=== PATIENT | female | born 1990 | race Caucasian/White ===

== ENCOUNTER 2017-07-01 07:58 | Emergency (ER) | payer MEDICAID ==
[~2017-07-01] VITALS: Ht 172.7 cm; Wt 54.2 kg
[~2017-07-01 07:58] MED LIST: DOXY100T PO; NORG1TAB7 PO; OXYC-307 PO
[2017-07-01] MEDS ORDERED: ALPR0.5T PO (08:42)
[2017-07-01 08:52] LABS: HEMATOCRIT 45.1 % (34.6-47.8); HEMOGLOBIN 15.4 g/dL (11.7-16.4); WHITE BLOOD COUNT 11.9 x10^3/uL (3.4-10)
[2017-07-01 08:58] LABS: PATH.CAST-FLAG NOT PRESENT; SPERM-FLAG NOT PRESENT; SRC-FLAG NOT PRESENT; XTAL-FLAG NOT PRESENT; YLC-FLAG NOT PRESENT
[2017-07-01] MEDS ORDERED: ONDANSETRON 2MG/ML, 2ML IVPush ONE (09:00)
[2017-07-01] MEDS ORDERED: SODIUM CHLORIDE 0.9% 1,000ML IVBOLUS ONE (09:00)
[2017-07-01 09:04] LABS: ASPARTATE AMINO TRANSFERASE 42 U/L (15-37); BLOOD UREA NITROGEN 8 mg/dL (7-18)
[2017-07-01] MEDS ORDERED: ONDANSETRON 2MG/ML, 2ML ONE (09:20)
[2017-07-01] MEDS ORDERED: SODIUM CHLORIDE 0.9% 1,000 ML IV ONE (10:00)
[2017-07-01] MEDS ORDERED: SODIUM CHLORIDE FLUSH 10ML SYR IVF ONE (10:00)
[2017-07-01] MEDS ORDERED: KETOROLAC 30 MG/1 ML IVPush ONE (10:00)
[2017-07-01] MEDS ORDERED: KETOROLAC 30 MG/1 ML ONE (10:11)
[2017-07-01 10:17] VITALS: BP 123/67
[2017-07-01] MEDS ORDERED: MAALOX/HYOSCYAMINE/LIDOCAINE 45 ML BTL PO ONE (10:30)
[2017-07-01] MEDS ORDERED: MAALOX/HYOSCYAMINE/LIDOCAINE 45 ML BTL ONE (10:47)
== END 2017-07-01 11:01 | disposition home or self-care (01) ==
LOC: ED 09:11
DX: K29.00 Acute gastritis without bleeding (principal)
CPT/HCPCS: 36415; 74176; 80053; 81001; 83690; 84703; 85025; 96361; 96374; 96375; 99285; J1885; J2405; J7030

== ENCOUNTER 2017-09-06 09:06 | Emergency (ER) | payer MEDICAID ==
[~2017-09-06] VITALS: Ht 172.7 cm; Wt 58.0 kg
[~2017-09-06 09:06] MED LIST changes: +ALPR0.5T PO
[2017-09-06] MEDS ORDERED: MORPHINE SULFATE 4 MG/ML, 1ML ONE ×2 (10:14→11:12)
[2017-09-06] MEDS ORDERED: ONDANSETRON 2MG/ML, 2ML ONE (10:14)
[2017-09-06] MEDS: MORPHINE SULFATE 4 MG/ML, 1ML IVPush PRN ×2 (10:28→11:16)
[2017-09-06] MEDS ORDERED: SODIUM CHLORIDE 0.9% 1,000ML IVBOLUS ONE (10:30)
[2017-09-06] MEDS ORDERED: SODIUM CHLORIDE FLUSH 10ML SYR IVF ONE (10:30)
[2017-09-06] MEDS ORDERED: ONDANSETRON 2MG/ML, 2ML IVPush ONE (10:30)
[2017-09-06 10:43] LABS: HEMATOCRIT 44.7 % (34.6-47.8); HEMOGLOBIN 15.2 g/dL (11.7-16.4); WHITE BLOOD COUNT 7.3 x10^3/uL (3.4-10)
[2017-09-06 10:55] LABS: BLOOD UREA NITROGEN 11 mg/dL (7-18)
[2017-09-06] MEDS ORDERED: OXYcodone/APAP 5/325MG TABLET PO ONE (12:00)
[2017-09-06 12:13] VITALS: BP 104/66
[2017-09-06] MEDS ORDERED: OXYcodone/APAP 5/325MG TABLET ONE (12:19)
== END 2017-09-06 12:19 | disposition home or self-care (01) ==
LOC: ED 12:13
DX: S39.012A Strain of muscle, fascia and tendon of lower back, initial encounter (principal); R10.2 Pelvic and perineal pain; G89.29 Other chronic pain; M54.42 Lumbago with sciatica, left side; N83.209 Unspecified ovarian cyst, unspecified side; X58.XXXA Exposure to other specified factors, initial encounter; Y93.89 Activity, other specified; Y99.8 Other external cause status; Y92.89 Other specified places as the place of occurrence of the external cause
CPT/HCPCS: 36415; 76830; 80048; 81003; 82040; 84703; 85025; 93971; 96361; 96374; 96375; 96376; 99285; J2405; J7030

== ENCOUNTER 2017-11-14 10:59 | Emergency (ER) | payer MEDICAID ==
[~2017-11-14] VITALS: Ht 172.7 cm; Wt 59.6 kg
[2017-11-14 11:16] VITALS: BP 121/90
[2017-11-14] MEDS ORDERED: IBUPROFEN 200 MG TABLET PO ONE (12:00)
[2017-11-14] MEDS ORDERED: OXYcodone/APAP 5/325MG TABLET PO ONE (12:00)
[2017-11-14] MEDS ORDERED: OXYcodone/APAP 5/325MG TABLET ONE (12:31)
[2017-11-14] MEDS ORDERED: IBUPROFEN 200 MG TABLET ONE (12:31)
== END 2017-11-14 13:01 | disposition home or self-care (01) ==
LOC: ED 12:50
DX: R07.89 Other chest pain (principal); G89.29 Other chronic pain; R10.9 Unspecified abdominal pain; S46.911A Strain of unspecified muscle, fascia and tendon at shoulder and upper arm level, right arm, initial encounter; X58.XXXA Exposure to other specified factors, initial encounter; Y93.89 Activity, other specified; Y99.8 Other external cause status; Y92.89 Other specified places as the place of occurrence of the external cause
CPT/HCPCS: 99284

== ENCOUNTER 2018-02-27 19:56 | Emergency (ER) | payer MEDICAID ==
[~2018-02-27] VITALS: Ht 172.7 cm; Wt 61.3 kg
[2018-02-27] MEDS ORDERED: LORazepam 1MG TABLET PO ONE (20:30)
[2018-02-27] MEDS ORDERED: LORazepam 1MG TABLET ONE (20:30)
[2018-02-27 20:38] VITALS: BP 117/84
== END 2018-02-27 20:57 | disposition home or self-care (01) ==
LOC: ED 20:50
DX: J98.01 Acute bronchospasm (principal); J00 Acute nasopharyngitis [common cold]
CPT/HCPCS: 71046; 93005; 99284; J7512

== ENCOUNTER 2018-07-09 09:13 | Emergency (ER) | payer MEDICAID ==
[~2018-07-09] VITALS: Ht 172.7 cm; Wt 62.0 kg
[2018-07-09] MEDS ORDERED: KETOROLAC 30 MG/1 ML ONE (09:59)
[2018-07-09] MEDS ORDERED: KETOROLAC 30 MG/1 ML IM ONE (10:00)
[2018-07-09 10:02] LABS: BASOPHILS # (AUTO) 0.14 x10^3/uL (0-0.1); BASOPHILS % (AUTO) 2 % (0-1); EOSINOPHILS # (AUTO) 0.13 x10^3/uL (0-0.4); EOSINOPHILS % (AUTO) 2 % (1-7); LYMPHOCYTES # (AUTO) 3.32 x10^3/uL (1-3.4); LYMPHOCYTES % (AUTO) 40 % (22-44); MD NO; MEAN CORPUSCULAR HEMOGLOBIN 33.7 pg (27.0-34.8); MEAN CORPUSCULAR HGB CONC 34.1 g/dL (32.4-35.8); MEAN CORPUSCULAR VOLUME 98.9 fL (80-100); MONOCYTES % (AUTO) 6 % (2-9); NEUTROPHILS # (AUTO) 4.19 x10^3/uL (1.8-6.8); NEUTROPHILS % (AUTO) 51 % (42-75); PLATELET COUNT 225 x10^3/uL (130-400); RED CELL DISTRIBUTION WIDTH 12.3 % (9.6-15.2)
[2018-07-09 10:11] LABS: HCG UR SG 1.023 (1.003-1.030); MICROSCOPIC AUTO
[2018-07-09 10:12] LABS: ALANINE AMINOTRANSFERASE 27 U/L (12-78); ALBUMIN 3.5 g/dL (3.4-5.0); ANION GAP 7 mmol/L (5-15); CHLORIDE 112 mmol/L (98-107)
[2018-07-09 10:12] LABS: CULTURE INDICATED? YES
[2018-07-09 10:13] LABS: ALKALINE PHOSPHATASE 127 U/L (45-117); BILIRUBIN,TOTAL 0.5 mg/dL (0.2-1.0); TOTAL PROTEIN 7.1 g/dL (6.4-8.2)
[2018-07-09] MEDS ORDERED: MORPHINE SULFATE 4 MG/ML, 1ML IVPush PRN (13:00)
[2018-07-09] MEDS ORDERED: OMNIPAQUE 350 MG/ML, 100ML BOTTLE ONE (13:28)
[2018-07-09 14:23] VITALS: BP 104/67
== END 2018-07-09 14:25 | disposition home or self-care (01) ==
LOC: ED 10:37
DX: R10.31 Right lower quadrant pain (principal); M54.9 Dorsalgia, unspecified; M25.562 Pain in left knee
CPT/HCPCS: 36415; 74177; 76856; 80053; 81001; 81025; 83690; 85025; 87086; 96372; 99285; J1885; Q9967

== ENCOUNTER 2018-07-23 21:27 | Emergency (ER) | payer MEDICAID ==
[~2018-07-23] VITALS: Ht 172.7 cm; Wt 64.0 kg
[2018-07-23 21:29] VITALS: BP 142/108
[2018-07-23] MEDS ORDERED: IBUPROFEN 200 MG TABLET ONE (21:54)
[2018-07-23] MEDS ORDERED: ACETAMINOPHEN 500 MG TABLET ONE (21:54)
[2018-07-23] MEDS ORDERED: ACETAMINOPHEN 500 MG TABLET PO ONE (22:00)
[2018-07-23] MEDS ORDERED: IBUPROFEN 200 MG TABLET PO ONE (22:00)
== END 2018-07-23 23:05 | disposition home or self-care (01) ==
LOC: ED 21:51
DX: M79.605 Pain in left leg (principal); M79.604 Pain in right leg; F41.1 Generalized anxiety disorder; F17.200 Nicotine dependence, unspecified, uncomplicated
CPT/HCPCS: 93970; 99284

== ENCOUNTER 2018-11-21 10:17 | Outpatient (CLI) | payer MEDICAID ==
[2018-11-21] MEDS ORDERED: IBUP-1223 PO (11:10)
[2018-11-21] MEDS ORDERED: ALPR1TAB2 PO (11:10)
[2018-11-21] MEDS ORDERED: NORG1TAB7 PO (11:10)
[2018-11-21] MEDS ORDERED: ACET-1600 PO (11:10)
== END 2018-11-21 23:59 | disposition home or self-care (01) ==
LOC: STAR 10:17
PROVIDERS: ATTEND Obstetrics & Gynecology
DX: Z02.9 Encounter for administrative examinations, unspecified (principal)

== ENCOUNTER 2018-11-30 10:05 | Observation (INO) | payer MEDICAID ==
[~2018-11-30] VITALS: Ht 172.7 cm; Wt 81.0 kg
[~2018-11-30 10:05] MED LIST changes: +ACET-1600 PO; +ALPR1TAB2 PO; +IBUP-1223 PO
[2018-11-30] MEDS ORDERED: INDIGO CARMINE 0.8%, 5ML ONE (11:03)
[2018-11-30 11:26] LABS: HCG UR SG 1.024 (1.003-1.030)
[2018-11-30] MEDS ORDERED: LACTATED RINGERS 1,000 ML IV SCH (11:33)
[2018-11-30] MEDS ORDERED: BUPIVACAINE/PF 0.25% ONE (11:39)
[2018-11-30] MEDS ORDERED: EPINEPHRINE 1 MG/ML, 1ML ONE (11:39)
[2018-11-30] MEDS ORDERED: FENTANYL PF 100 MCG/2ML ONE ×2 (11:40→15:27)
[2018-11-30] MEDS ORDERED: MIDAZOLAM 1 MG/ML, 2ML ONE (11:40)
[2018-11-30] MEDS ORDERED: MEPERIDINE/PF 25MG/0.5ML IVPush PRN (12:00)
[2018-11-30] MEDS ORDERED: METOCLOPRAMIDE 5 MG/ML, 2ML IV PRN (12:00)
[2018-11-30] MEDS ORDERED: HYDROmorphone 2 MG/ML, 1ML IVPush PRN (12:00)
[2018-11-30] MEDS ORDERED: ACETAMINOPHEN 325 MG TABLET PO PRN (12:00)
[2018-11-30] MEDS ORDERED: OXYcodone 5 MG/5 ML ORAL.SOL UDC PO PRN (12:00)
[2018-11-30] MEDS ORDERED: PROPOFOL 10 MG/ML, 20ML ONE (12:50)
[2018-11-30] MEDS ORDERED: GLYCOPYRROLATE 0.2MG/1ML, 5ML ONE (12:50)
[2018-11-30] MEDS ORDERED: ONDANSETRON 2MG/ML, 2ML ONE (12:50)
[2018-11-30] MEDS ORDERED: CEFAZOLIN 1,000 MG ONE (12:50)
[2018-11-30] MEDS ORDERED: KETOROLAC 30 MG/1 ML ONE (12:50)
[2018-11-30] MEDS ORDERED: ROCURONIUM 10MG/ML,5ML ONE (12:50)
[2018-11-30] MEDS ORDERED: NEOSTIGMINE 1 MG/ML, 10ML ONE (12:50)
[2018-11-30] MEDS ORDERED: DEXAMETHASONE 4 MG/ML, 1ML ONE (12:50)
[2018-11-30] MEDS ORDERED: LIDOCAINE 2% 100MG/5ML SYRINGE ONE (12:50)
[2018-11-30] MEDS ORDERED: BUPIVACAINE/PF-EPI 0.25% 1:200K INFIL ONE (13:15)
[2018-11-30] MEDS ORDERED: OXYcodone 5 MG/5 ML ORAL.SOL UDC ONE (15:27)
[2018-11-30] MEDS ORDERED: LORazepam 2 MG/ML, 1ML ONE (15:27)
[2018-11-30] MEDS: LORazepam 2 MG/ML, 1ML IVPush PRN ×2 (15:30→15:35)
[2018-11-30] MEDS: FENTANYL PF 100 MCG/2ML IV PRN ×2 (15:36→16:14)
[2018-11-30 16:45] VITALS: BP 101/66
[2018-11-30] MEDS ORDERED: ONDANSETRON 2MG/ML, 2ML IV PRN (17:00)
[2018-11-30] MEDS ORDERED: SIMETHICONE 80 MG CHEW TAB ONE (17:26)
[2018-11-30] MEDS: POTASSIUM CHLORIDE 20 MEQ in D5%-LACTATED RINGERS 1,000 ML IV SCH (17:28)
[2018-11-30 18:53] VITALS: BP 100/57
[2018-11-30] MEDS: OXYcodone/APAP 5/325MG TABLET PO PRN ×2 (19:32→23:32)
[2018-11-30] MEDS ORDERED: ZOLPIDEM 5MG TABLET PO PRN (21:00)
[2018-11-30] MEDS ORDERED: SIMETHICONE 80 MG CHEW TAB PO SCH (21:00)
[2018-11-30] MEDS: IBUPROFEN 600 MG TABLET PO SCH (21:03)
[2018-11-30] MEDS: SIMETHICONE 80 MG CHEW TAB PO SCH (21:03)
[2018-11-30] MEDS: morphine SULFATE 10 MG/ML, 1ML IV PRN (21:15)
[2018-12-01] MEDS: morphine SULFATE 10 MG/ML, 1ML IV PRN (01:05)
[2018-12-01 01:07] VITALS: BP 98/68
[2018-12-01] MEDS: POTASSIUM CHLORIDE 20 MEQ in D5%-LACTATED RINGERS 1,000 ML IV SCH (01:20)
[2018-12-01] MEDS: OXYcodone/APAP 5/325MG TABLET PO PRN ×3 (03:49→11:49)
[2018-12-01 04:19] VITALS: BP 98/65
[2018-12-01] MEDS: IBUPROFEN 600 MG TABLET PO SCH ×2 (05:45→11:49)
[2018-12-01 07:12] VITALS: BP 114/76
[2018-12-01] MEDS: SIMETHICONE 80 MG CHEW TAB PO SCH (09:59)
[2018-12-01] MEDS ORDERED: OXYC-302 PO (13:34)
== END 2018-12-01 13:40 | disposition home or self-care (01) ==
LOC: OUT 10:05 → 4NOR 16:37 → OUT 21:56 → 4NOR 21:56 → DCLOUNGE 12-01 13:28
PROVIDERS: ADMIT Obstetrics & Gynecology; ATTEND Obstetrics & Gynecology
DX: N94.6 Dysmenorrhea, unspecified (principal); N94.10 Unspecified dyspareunia; F17.210 Nicotine dependence, cigarettes, uncomplicated; N89.5 Stricture and atresia of vagina; N94.89 Other specified conditions associated with female genital organs and menstrual cycle
CPT/HCPCS: 36415; 58570; 81025; 85014; 85018; 88307; 96374; 96376; G0378; J0171; J0690; J1100; J1885; J2060; J2250; J2270; J2405; J2704; J2710; J3010; J3480; J3490; J7120; J7121

== ENCOUNTER 2019-07-16 13:49 | Emergency (ER) | payer MEDICAID ==
[~2019-07-16] VITALS: Ht 167.6 cm; Wt 70.1 kg
[~2019-07-16 13:49] MED LIST changes: +OXYC-302 PO
--- NOTE | 2019-07-16 14:39 | NUR ---
FIRST CONTACT WITH PT. PT C/O DIARRHEA/NAUSEA X 2 DAYS AND CRAMPING TO LOWER ABD AND LOW BACK SINCE YESTERDAY. PT'S AOX4. RESPS EVEN AND UNLABORED. PT DENIES VB/CP AT THIS TIME. BP/SPO2 MONITORS IN PLACE. CALL LIGHT WITHIN REACH.
[2019-07-16] MEDS ORDERED: HYDROmorphone 2 MG/ML, 1ML ONE (15:12)
[2019-07-16] MEDS ORDERED: ONDANSETRON 2MG/ML, 2ML ONE (15:13)
[2019-07-16] MEDS: HYDROmorphone 2 MG/ML, 1ML IVPush PRN ×2 (15:21→17:48)
[2019-07-16 15:24] LABS: BASOPHILS % (AUTO) 1 % (0-1); EOSINOPHILS # (AUTO) 0.24 x10^3/uL (0-0.4); EOSINOPHILS % (AUTO) 3 % (1-7); LYMPHOCYTES # (AUTO) 3.16 x10^3/uL (1-3.4); LYMPHOCYTES % (AUTO) 37 % (22-44); MD NO; MEAN CORPUSCULAR HEMOGLOBIN 34.3 pg (27.0-34.8); MEAN CORPUSCULAR HGB CONC 33.8 g/dL (32.4-35.8); MEAN CORPUSCULAR VOLUME 101.5 fL (80-100); MEAN PLATELET VOLUME 8.1 fL (7.4-10.4); MONOCYTES % (AUTO) 8 % (2-9); NEUTROPHILS # (AUTO) 4.42 x10^3/uL (1.8-6.8); NEUTROPHILS % (AUTO) 51 % (42-75); PLATELET COUNT 252 x10^3/uL (130-400); RED BLOOD COUNT 4.59 x10^6/uL (3.82-5.3); RED CELL DISTRIBUTION WIDTH 13.1 % (9.6-15.2)
--- NOTE | 2019-07-16 15:28 | NUR ---
PT MEDICATED PER EMAR. PT TOLERATED WELL. IVF INFUSING AT THIS TIME.
[2019-07-16] MEDS ORDERED: SODIUM CHLORIDE 0.9% 1,000ML IVBOLUS ONE (15:30)
[2019-07-16] MEDS ORDERED: SODIUM CHLORIDE FLUSH 10ML SYR IVF ONE (15:30)
[2019-07-16] MEDS ORDERED: ONDANSETRON 2MG/ML, 2ML IVPush ONE (15:30)
[2019-07-16 15:33] LABS: ALANINE AMINOTRANSFERASE 43 U/L (12-78); ANION GAP 8 mmol/L (5-15); CALCIUM 9.2 mg/dL (8.5-10.1); CHLORIDE 110 mmol/L (98-107)
[2019-07-16 15:35] LABS: ALKALINE PHOSPHATASE 154 U/L (45-117); BILIRUBIN,TOTAL 0.2 mg/dL (0.2-1.0); TOTAL PROTEIN 7.5 g/dL (6.4-8.2)
--- NOTE | 2019-07-16 15:55 | NUR ---
PT AWARES OF STOOL SAMPLE. PT STATES "I CAN'T DO IT NOW."
--- NOTE | 2019-07-16 16:24 | NUR ---
PT AMB TO BR WITH STEADY GAIT FOR STOOL SAMPLE.
--- NOTE | 2019-07-16 16:41 | NUR ---
PT STATES " I CAN'T POOP" PT BACK TO ROOM WITH STEADY GAIT.
--- NOTE | 2019-07-16 17:40 | NUR ---
PT AMB TO BR WITH STEADY GAIT. PT REQUESTING PAIN MEDS. EDMD NOTIFIED.
--- NOTE | 2019-07-16 17:44 | NUR ---
WARM BLANKET GIVEN AT THIS TIME.
[2019-07-16] MEDS ORDERED: HYDROmorphone 1 MG/ML, 1ML VIAL ONE (17:46)
--- NOTE | 2019-07-16 17:51 | NUR ---
PT MEDICATED PER EMAR. OBTAINED 5 RIGHTS BEFORE GIVEN MED. PT'S AOX4. RESPS EVEN AND UNLABORED. PT TO CT NOW.
--- NOTE | 2019-07-16 18:04 | NUR ---
PT BACK TO ROOM FROM CT AT THIS TIME.
--- NOTE | 2019-07-16 18:36 | NUR ---
PT WALKING AROUND THE HALLWAY. EDMD ORDERED XANAX AT THIS TIME.
--- NOTE | 2019-07-16 18:57 | NUR ---
REPORT GIVEN TO ROSANNA STOKES.
[2019-07-16 18:58] VITALS: BP 121/61
== END 2019-07-16 19:01 | disposition home or self-care (01) ==
LOC: ED 14:38
DX: R10.9 Unspecified abdominal pain (principal); R11.2 Nausea with vomiting, unspecified; R19.7 Diarrhea, unspecified
CPT/HCPCS: 36415; 74176; 80053; 85025; 96361; 96374; 96375; 96376; 99284; J1170; J2405; J7030

== ENCOUNTER 2019-08-02 17:29 | Emergency (ER) | payer MEDICAID ==
[~2019-08-02] VITALS: Ht 172.7 cm; Wt 65.9 kg
[2019-08-02 18:00] LABS: MICROSCOPIC NOT IND
[2019-08-02 18:01] LABS: CULTURE INDICATED? NO
[2019-08-02] MEDS ORDERED: QUET25TA5 PO (18:15)
--- NOTE | 2019-08-02 18:16 | NUR ---
THIS IS A 29 YO FEMALE COMING IN FOR "I'M RETAINING URINE." SAW OBGYN TODAY WHO WANTS HER TO GET [employer]S CATHETER TO RELIEVE SYMPTOMS AND RELIEVE PRESSURE FOR A FEW DAYS. ABLE TO PROVIDE URINE SAMPLE IN TRIAGE. STATES THERE IS PRESSURE IN GROIN, INSIDE, AND OUTSIDE OF VAGINA. HAS FELT LIKE THIS FOR 5 DAYS. PER PT US AT OBGYN PERFORMED AND BLADDER WAS "HUGE." BLADDER SCAN DONE IN ROOM, 62ML PRESENT. PATIENT PLACED ON CONTINUOUS SPO2 AT 99%, CYCLE BP Q1HR. CALL LIGHT IN REACH.
[2019-08-02] MEDS ORDERED: KETOROLAC 30 MG/1 ML IM ONE (18:30)
[2019-08-02] MEDS ORDERED: HYDROcodone/APAP 5/325 TABLET PO ONE (18:30)
[2019-08-02] MEDS ORDERED: KETOROLAC 30 MG/1 ML ONE (18:34)
[2019-08-02] MEDS ORDERED: OXYcodone/APAP 5/325MG TABLET ONE (18:35)
[2019-08-02] MEDS ORDERED: HYDROcodone/APAP 5/325 TABLET ONE (18:38)
--- NOTE | 2019-08-02 18:44 | NUR ---
PATIENT MEDICATED PER EMAR, NEEDS ADDRESSED.
[2019-08-02 18:47] LABS: BASOPHILS # (AUTO) 0.06 x10^3/uL (0-0.1); BASOPHILS % (AUTO) 1 % (0-1); EOSINOPHILS % (AUTO) 1 % (1-7); LYMPHOCYTES # (AUTO) 3.43 x10^3/uL (1-3.4); LYMPHOCYTES % (AUTO) 31 % (22-44); MD NO; MEAN CORPUSCULAR HGB CONC 33.3 g/dL (32.4-35.8); MEAN PLATELET VOLUME 8.2 fL (7.4-10.4); MONOCYTES # (AUTO) 0.61 x10^3/uL (0.2-0.8); MONOCYTES % (AUTO) 6 % (2-9); NEUTROPHILS # (AUTO) 6.73 x10^3/uL (1.8-6.8); NEUTROPHILS % (AUTO) 62 % (42-75); PLATELET COUNT 239 x10^3/uL (130-400); RED BLOOD COUNT 4.51 x10^6/uL (3.82-5.3); RED CELL DISTRIBUTION WIDTH 12.8 % (9.6-15.2)
--- NOTE | 2019-08-02 18:48 | NUR ---
REPORT GIVEN TO DIVYA BLOUNT. PLAN OF CARE DISCUSSED.
[2019-08-02 18:56] VITALS: BP 128/81
--- NOTE | 2019-08-02 18:57 | NUR ---
PT RESTING ON GURECKERMAN. PT UPDATED ON POC. MONITORING IN PLACE. ALL SAFETY MEASURES IN PLACE, CALL LIGHT WITHIN REACH.
[2019-08-02 18:59] LABS: ALANINE AMINOTRANSFERASE 28 U/L (12-78); ALBUMIN 4.1 g/dL (3.4-5.0); ANION GAP 6 mmol/L (5-15); CALCIUM 9.6 mg/dL (8.5-10.1); CHLORIDE 113 mmol/L (98-107); CREATININE 0.78 mg/dL (0.55-1.02)
[2019-08-02 19:01] LABS: ALKALINE PHOSPHATASE 127 U/L (45-117); BILIRUBIN,TOTAL 0.7 mg/dL (0.2-1.0)
== END 2019-08-02 20:04 | disposition home or self-care (01) ==
LOC: ED 19:59
DX: G89.29 Other chronic pain (principal); N30.00 Acute cystitis without hematuria; R10.2 Pelvic and perineal pain; F17.200 Nicotine dependence, unspecified, uncomplicated; Z90.710 Acquired absence of both cervix and uterus
CPT/HCPCS: 36415; 80053; 81003; 85025; 96372; 99283; J1885

== ENCOUNTER 2019-11-05 10:50 | Emergency (ER) | payer MEDICAID ==
[~2019-11-05] VITALS: Ht 172.7 cm; Wt 65.0 kg
[~2019-11-05 10:50] MED LIST changes: +QUET25TA5 PO
[2019-11-05 11:08] VITALS: BP 121/37
--- NOTE | 2019-11-05 11:30 | NUR ---
PT STATES SHE STARTED A NEW WORK OUT AND NOTICED RIGHT SHOULDER PAIN.
[2019-11-05] MEDS ORDERED: KETOROLAC 30 MG/1 ML ONE (11:58)
[2019-11-05] MEDS ORDERED: KETOROLAC 30 MG/1 ML IM ONE (12:00)
--- NOTE | 2019-11-05 12:00 | NUR ---
PT MEDICATED PER ORDER.
--- NOTE | 2019-11-05 12:20 | NUR ---
ALL RESULTS BACK AT THIS TIME, CHART UP FOR RECHECK.
[2019-11-05] MEDS ORDERED: HYDROcodone/APAP 5/325 TABLET PO ONE (13:00)
[2019-11-05] MEDS ORDERED: HYDROcodone/APAP 5/325 TABLET ONE (13:01)
--- NOTE | 2019-11-05 13:03 | NUR ---
PT MEDICATED PER ORDERS.
--- NOTE | 2019-11-05 13:36 | NUR ---
Patient/Caregiver given discharge instructions and they have confirmed that they understand the instructions. Patient ambulatory with steady gait.
== END 2019-11-05 13:45 | disposition home or self-care (01) ==
LOC: ED 13:30
DX: G89.11 Acute pain due to trauma (principal); M25.511 Pain in right shoulder; F17.200 Nicotine dependence, unspecified, uncomplicated; Z90.710 Acquired absence of both cervix and uterus
CPT/HCPCS: 73030; 96372; 99283; J1885

== ENCOUNTER 2019-11-20 15:08 | Emergency (ER) | payer MEDICAID ==
[~2019-11-20] VITALS: Ht 172.7 cm; Wt 65.3 kg
[2019-11-20 15:27] VITALS: BP 130/71
[2019-11-20 16:16] LABS: RAPID INFLUENZA A Negative (Negative); RAPID INFLUENZA B Negative (Negative)
--- NOTE | 2019-11-20 17:03 | NUR ---
At time of d/c, pt alert, oriented and ambulatory. NAD. Pt educated on home care, follow-up and OTC meds. Pt VU. Pt ambulated out of ER.
== END 2019-11-20 18:01 | disposition home or self-care (01) ==
LOC: ED 17:15
DX: J00 Acute nasopharyngitis [common cold] (principal); B34.9 Viral infection, unspecified; F41.1 Generalized anxiety disorder
CPT/HCPCS: 71046; 87400; 99284

== ENCOUNTER 2020-04-27 07:56 | Emergency (ER) | payer MEDICAID ==
[~2020-04-27] VITALS: Ht 172.7 cm; Wt 66.0 kg
--- NOTE | 2020-04-27 08:18 | NUR ---
PT IN HOSPITAL GOWN. PT VSS AT THIS TIME. IV STARTED. PT ABLE TO AMBULATE TO BATHROOM STEADILY TO PROVIDE URINE SAMPLE.
[2020-04-27] MEDS ORDERED: ONDANSETRON 2MG/ML, 2ML ONE (08:22)
[2020-04-27] MEDS ORDERED: MORPHINE SULFATE 4 MG/ML, 1ML ONE ×2 (08:22→09:52)
[2020-04-27] MEDS: MORPHINE SULFATE 4 MG/ML, 1ML IVPush PRN ×2 (08:24→09:54)
[2020-04-27] MEDS ORDERED: SODIUM CHLORIDE FLUSH 10ML SYR IVF ONE (08:30)
[2020-04-27] MEDS ORDERED: ONDANSETRON 2MG/ML, 2ML IVPush ONE (08:30)
--- NOTE | 2020-04-27 08:33 | NUR ---
PT MEDICATED FOR PAIN AND NAUSEA. LAB IN NOW DAWING LABS.
[2020-04-27 08:37] LABS: MICROSCOPIC NOT IND
[2020-04-27 08:48] LABS: BASOPHILS # (AUTO) 0.02 x10^3/uL (0-0.1); BASOPHILS % (AUTO) 0 % (0-1); EOSINOPHILS # (AUTO) 0.16 x10^3/uL (0-0.4); EOSINOPHILS % (AUTO) 2 % (1-7); LYMPHOCYTES # (AUTO) 3.37 x10^3/uL (1-3.4); LYMPHOCYTES % (AUTO) 38 % (22-44); MD NO; MEAN CORPUSCULAR HEMOGLOBIN 33.7 pg (27.0-34.8); MEAN PLATELET VOLUME 8.3 fL (7.4-10.4); MONOCYTES # (AUTO) 0.52 x10^3/uL (0.2-0.8); MONOCYTES % (AUTO) 6 % (2-9); NEUTROPHILS # (AUTO) 4.84 x10^3/uL (1.8-6.8); NEUTROPHILS % (AUTO) 54 % (42-75); PLATELET COUNT 226 x10^3/uL (130-400); RED BLOOD COUNT 4.33 x10^6/uL (3.82-5.3); RED CELL DISTRIBUTION WIDTH 12.7 % (9.6-15.2)
[2020-04-27 08:58] LABS: ALANINE AMINOTRANSFERASE 21 U/L (12-78); ALBUMIN 3.9 g/dL (3.4-5.0); ANION GAP 6 mmol/L (5-15); CALCIUM 9.3 mg/dL (8.5-10.1); CHLORIDE 114 mmol/L (98-107); CREATININE 0.68 mg/dL (0.55-1.02)
[2020-04-27 09:00] LABS: ALKALINE PHOSPHATASE 154 U/L (45-117); BILIRUBIN,TOTAL 0.4 mg/dL (0.2-1.0); TOTAL PROTEIN 7.1 g/dL (6.4-8.2)
--- NOTE | 2020-04-27 09:59 | NUR ---
PT MEDICATED FOR PAIN PER EMAR. CT AWARE PT READY FOR SCAN. PT VSS, SEE CHARTED.
--- NOTE | 2020-04-27 10:10 | NUR ---
PT TO CT
[2020-04-27] MEDS ORDERED: OMNIPAQUE 350 MG/ML, 100ML BOTTLE ONE (10:19)
[2020-04-27] MEDS ORDERED: LORazepam 1MG TABLET ONE (10:54)
[2020-04-27] MEDS ORDERED: LORazepam 1MG TABLET PO ONE (11:00)
[2020-04-27] MEDS ORDERED: LORazepam 2 MG/ML, 1ML IVPush ONE (11:00)
[2020-04-27 11:08] VITALS: BP 105/66
== END 2020-04-27 11:10 | disposition home or self-care (01) ==
LOC: ED 08:42
DX: K29.00 Acute gastritis without bleeding (principal); G89.29 Other chronic pain; R10.13 Epigastric pain; F41.1 Generalized anxiety disorder; F17.290 Nicotine dependence, other tobacco product, uncomplicated; Z90.710 Acquired absence of both cervix and uterus
CPT/HCPCS: 36415; 74177; 76700; 80053; 81003; 83690; 85025; 96374; 96375; 96376; 99285; J2270; J2405; Q9967